=== PATIENT | female | born 1970 | race Caucasian/White ===

== ENCOUNTER → 2016-10-11 | Outpatient (CLI) | payer OTHER | LOC: FIMAGING 08:13 | PROVIDERS: ATTEND Family Medicine | DX: Z12.31 Encounter for screening mammogram for malignant neoplasm of breast (principal) | CPT/HCPCS: G0202 ==

== ENCOUNTER → 2017-12-08 | Outpatient (CLI) | payer OTHER | LOC: BMCIMAGING 08:04 | PROVIDERS: ATTEND Physician Assistant | DX: R10.11 Right upper quadrant pain (principal) ==

== ENCOUNTER → 2018-02-16 | Outpatient (CLI) | payer OTHER | LOC: FIMAGING 12:41 | PROVIDERS: ATTEND Family Medicine Sports Medicine | DX: Z13.820 Encounter for screening for osteoporosis (principal); M85.89 Other specified disorders of bone density and structure, multiple sites; Z87.312 Personal history of (healed) stress fracture ==